=== PATIENT | male | born 1965 | race Caucasian/White ===

== ENCOUNTER 2022-06-14 12:02 | Day surgery (SDC) | payer OTHER ==
[~2022-06-14] VITALS: Ht 175.3 cm; Wt 57.1 kg
[~2022-06-14 12:02] MED LIST: ACET500C10 PO; BETAMETHASONE SOLUSPAN 6MG/ML 5ML VIAL As Ordered ONE; COMB0.2S OU; CYCL-707 PO; GABA-282 PO; LATA0.0015 OU; LIDOCAINE 1% SDV 5ML VIAL As Ordered ONE; LIDOCAINE 3.5 % 1ML OPHTH TOPICAL GEL OU ONE; LIDOCAINE W/EPINEPHRINE 1% 20ML VIAL As Ordered ONE; MIDAZOLAM INJ 2MG/2ML VIAL As Ordered ONE; OYST500T12 PO; TOBRADEX OPHTH OINT 3.5 GM As Ordered ONE; TOBRAMYCIN 80MG/2ML VIAL As Ordered ONE; fentaNYL 100 MCG/2 ML INJECTION As Ordered ONE; mitoMYcin 0.2 MG/VIAL KIT FOR OPHTHALMIC USE As Ordered ONE
[2022-06-14 13:40] VITALS: BP 112/60; TEMP 97.5; O2SAT 96
== END 2022-06-14 17:32 | disposition home or self-care (01) ==
LOC: M SDC 12:02
PROVIDERS: ATTEND Ophthalmology
DX: H40.1120 Primary open-angle glaucoma, left eye, stage unspecified (principal); Z79.899 Other long term (current) drug therapy
CPT/HCPCS: 66183; C1783; J2250; J3010; J7315